=== PATIENT | female | born 1965 | race Caucasian/White ===

== ENCOUNTER 2017-01-10 13:56 | Outpatient (CLI) | payer OTHER | END 2017-01-10 13:57 | disposition home or self-care (01) | LOC: LAB.R 13:56 | PROVIDERS: ATTEND Registered Nurse | DX: R31.9 Hematuria, unspecified (principal) | CPT/HCPCS: 87086 ==

== ENCOUNTER 2017-01-16 15:00 | Outpatient (CLI) | payer OTHER ==
--- NOTE | 2017-01-17 09:44 | Ultrasound Report ---
PELVIC ULTRASOUND: 01/16/2017 COMPARISON: None. INDICATION: Pelvic and perineal pain. TECHNIQUE: Sonographic evaluation of the pelvis, transabdominal and endovaginal technique. FINDINGS: There is a 1.3 cm hypoechoic mass in the anterior uterine body, likely a fibroid. The uterus appears otherwise unremarkable. Endometrial stripe 5 mm. There is a hypoechoic focus in the left ovary that measures 1.2 cm. It likely represents a hemorrhagic cyst. The ovaries appear otherwise normal in size and echogenicity with normal blood flow. IMPRESSION: 1. SMALL UTERINE FIBROID IS OF UNLIKELY SIGNIFICANCE. 2. SMALL HYPOECHOIC FOCUS OF THE LEFT OVARY IS LIKELY A HEMORRHAGIC CYST. FOLLOWUP IS AVAILABLE. JOB #: [id number] EXT JOB #: [id number] JAYLON
== END 2017-01-16 15:01 | disposition home or self-care (01) ==
LOC: DI 15:00
PROVIDERS: ATTEND Registered Nurse
DX: R10.2 Pelvic and perineal pain (principal); D25.9 Leiomyoma of uterus, unspecified
CPT/HCPCS: 76830; 76856

== ENCOUNTER 2017-02-25 09:11 | Outpatient (CLI) | payer OTHER ==
--- NOTE | 2017-02-25 15:41 | Ultrasound Report ---
DATE OF SERVICE: 02/25/2017 PELVIC ULTRASOUND: 02/25/2017 CLINICAL INDICATION: Followup cyst. TECHNIQUE: Transabdominal pelvic ultrasound performed for global evaluation. Transvaginal pelvic ultrasound performed for detailed evaluation. Real-time scanning performed and static images obtained. COMPARISON: 01/16/2017. FINDINGS: The uterus is retroverted, measuring 9.4 x 5.4 x 4.5 cm. An 1.9 cm posterior intramural leiomyoma is again noted. The endometrium measures 8 mm. Right ovary measures 3.6 x 2.2 x 1.6 cm, and demonstrates follicles. The left ovary measures 2.5 x 2.4 x 1.1 cm, and demonstrates follicles. The previously noted hemorrhagic left ovarian cyst has resolved. Trace free fluid is noted in the cul-de-sac. IMPRESSION: RESOLUTION OF PREVIOUSLY SEEN HEMORRHAGIC LEFT OVARIAN CYST. BILATERAL OVARIAN FOLLICLES. STABLE LEIOMYOMA. TD: 02/25/2017 16:40 MTDD
== END 2017-02-25 09:12 | disposition home or self-care (01) ==
LOC: DI 09:11
PROVIDERS: ATTEND Registered Nurse
DX: D25.1 Intramural leiomyoma of uterus (principal)
CPT/HCPCS: 76830; 76856

== ENCOUNTER 2018-11-07 08:00 | Outpatient (CLI) | payer OTHER ==
[2018-11-07 20:54] LABS: CANDIDA GROUP DNA NEGATIVE (NEGATIVE); CANDIDA KRUSEI DNA NEGATIVE (NEGATIVE); TRICHOMONAS VAGINALIS DNA NEGATIVE (NEGATIVE)
[2018-11-09 08:12] LABS: SOURCE VAGINAL
== END 2018-11-07 23:59 | disposition home or self-care (01) ==
LOC: LAB.R 08:00
PROVIDERS: ATTEND Obstetrics & Gynecology
DX: N90.89 Other specified noninflammatory disorders of vulva and perineum (principal)
CPT/HCPCS: 87529; 87661; 87801

== ENCOUNTER 2018-11-11 07:59 | Outpatient (CLI) | payer OTHER ==
[2018-11-11 08:41] LABS: ALBUMIN 4.2 g/dL (3.2-5.5); ALBUMIN/GLOBULIN RATIO 1.5 (1.0-2.2); ALKALINE PHOSPHATASE 45 IU/L (42-121); ALT ALANINE AMINOTRANSFERASE 16 IU/L (10-60); AST ASPARTATE AMINOTRANSFERASE 18 IU/L (10-42); BILIRUBIN,TOTAL 0.9 mg/dL (0.2-1.0); BUN - BLOOD UREA NITROGEN 17 mg/dL (6-20); CALCIUM 8.7 mg/dL (8.5-10.3); CARBON DIOXIDE - CO2 24 mmol/L (21-32); CHLORIDE 105 mmol/L (101-111); CHOL/HDL RATIO 3.9 (<4.4); CHOLESTEROL 214 mg/dL; CREATININE 0.7 mg/dL (0.4-1.0); GFR - MDRD 88 (>89); GLUCOSE 104 mg/dL (70-100); HDL CHOLESTEROL 55 mg/dL; LDL CHOLESTEROL,CALCULATED 147 mg/dL; LDL/HDL RATIO 2.7 (<4.4); SODIUM 138 mmol/L (135-145); VLDL CHOLESTEROL 12 mg/dL
[2018-11-11 08:50] LABS: HB2 TOTAL 14.8 g/dL; HEMOGLOBIN A1C 0.49 g/dL; HEMOGLOBIN A1C % 5.2 % (4.6-6.2); HGB - HEMOGLOBIN 14.6 g/dL (12.0-16.0); MEAN CORPUSCULAR HEMOGLOBIN 32.1 pg (27.0-31.0); MEAN CORPUSCULAR HGB CONC 34.4 g/dL (32.0-36.0); MEAN CORPUSCULAR VOLUME 93.2 fL (81.0-99.0); MEAN PLATELET VOLUME 10.3 fL (7.9-10.8); RED BLOOD COUNT 4.55 10^6/uL (4.20-5.40); RED CELL DISTRIBUTION WIDTH 12.4 % (12.0-15.0); WHITE BLOOD COUNT 4.2 x10^3/uL (4.8-10.8)
[2018-11-13 11:27] LABS: HSV 1 IGG TYPE SPECIFIC AB <0.90 index; HSV 2 IGG TYPE SPECIFIC AB 7.88 index
[2018-11-13 14:12] LABS: SOURCE SERUM
== END 2018-11-11 08:00 | disposition home or self-care (01) ==
LOC: LAB 07:59
PROVIDERS: ATTEND Obstetrics & Gynecology
DX: Z00.00 Encounter for general adult medical examination without abnormal findings (principal); N93.8 Other specified abnormal uterine and vaginal bleeding; N90.89 Other specified noninflammatory disorders of vulva and perineum
CPT/HCPCS: 36415; 80053; 80061; 81599; 83036; 83721; 84443; 85027; 86695; 86696; 87529

== ENCOUNTER 2018-11-28 14:41 | Outpatient (CLI) | payer OTHER ==
--- NOTE | 2018-11-28 16:04 | Ultrasound Report ---
Reason: DUB Procedure Date: 11/28/2018 Accession Number: [id number] / [id number] Procedure: US - Pelvic w/Transvaginal CPT Code: FULL RESULT: EXAM: PELVIC ULTRASOUND EXAM DATE: 11/28/2018 03:39 PM. CLINICAL HISTORY: Dysfunctional uterine bleeding. COMPARISON: PELVIC W/TRANSVAGINAL 02/25/2017 10:22 AM. TECHNIQUE: Realtime transabdominal pelvic scan performed to identify the uterus and adnexa and as an overview of other pelvic structures, followed by transvaginal scan to provide greater detail of the uterus and adnexa, with static image documentation. FINDINGS: Uterus: 7.1 x 4.8 x 5.5 cm, volume 98 cc. Retroverted position. Normal overall size and echotexture. Masses: Posterior intramural fibroid 2.2 x 1.4 x 2.3 cm. Previously 1.9 cm. Endometrium: 4 mm. Normal. Cervix: Unremarkable. Right Ovary: 3.4 x 1.2 x 1.1 cm, volume 2.3 cc. Normal echotexture and blood flow. Left Ovary: 2.5 x 1.4 x 1.5 cm, volume 2.6 cc. Normal echotexture and blood flow. Free Fluid: None. Other: None. IMPRESSION: 1. Interval enlargement of intramural fibroid from 1.9-2.3 cm. 2. Normal endometrium. RADIA
== END 2018-11-28 14:42 | disposition home or self-care (01) ==
LOC: DI 14:41
PROVIDERS: ATTEND Obstetrics & Gynecology
DX: D25.1 Intramural leiomyoma of uterus (principal)
CPT/HCPCS: 76830; 76856

== ENCOUNTER 2018-11-28 14:44 | Outpatient (CLI) | payer OTHER ==
--- NOTE | 2018-12-01 10:52 | Mammography Report ---
Reason: ANNUAL SCREENING Procedure Date: 11/28/2018 Accession Number: [id number] / [id number] Procedure: OVIDIO - Screening Mammo Impl w/David CPT Code: FULL RESULT: EXAM: Screening Mammo Impl w/David DATE: 11/28/2018 4:11 PM CLINICAL HISTORY: Mother with breast cancer. History of breast implants. For routine screening. TECHNIQUE: (B) - Bilateral CC and MLO views were obtained, including implant displaced views.. COMPARISON: 12/09/2013 and 11/21/2012 PARENCHYMAL PATTERN: (D) - The breasts demonstrate heterogeneously dense fibroglandular parenchyma bilaterally. FINDINGS: No significant interval change. There are no suspicious masses, calcifications, or areas of distortion. Stable implants. IMPRESSION: Negative examination. BI-RADS category 1. RECOMMENDATION: (ANNUAL) - Recommend routine annual screening mammography. BI-RADS CATEGORY: (1) - Negative. STANDARD QUALIFYING STATEMENTS: 1. This examination was not reviewed with the aid of Computer-Aided Detection (CAD). 2. A negative or benign imaging report should not preclude biopsy if clinically suspicious findings are present. 3. Dense breasts may obscure an underlying neoplasm. 4. This examination was reviewed with the aid of 3D breast imaging (tomosynthesis).
== END 2018-11-28 14:45 | disposition home or self-care (01) ==
LOC: DI 14:44
PROVIDERS: ATTEND Obstetrics & Gynecology
DX: Z12.31 Encounter for screening mammogram for malignant neoplasm of breast (principal); Z80.3 Family history of malignant neoplasm of breast; Z98.82 Breast implant status
CPT/HCPCS: 77063; 77067

== ENCOUNTER 2021-01-23 11:15 | Outpatient (CLI) | payer SELFPAY | END 2021-01-23 23:59 | disposition home or self-care (01) | LOC: LAB.N 11:15 | PROVIDERS: ATTEND Physician Assistant | DX: R05.9 Cough, unspecified (principal); Z20.822 Contact with and (suspected) exposure to COVID-19 ==

== ENCOUNTER 2021-07-12 14:34 | Outpatient (CLI) | payer OTHER ==
--- NOTE | 2021-07-14 07:54 | Mammography Report ---
BILATERAL DIGITAL SCREENING MAMMOGRAM 3D/2D WITH AUGMENTATION: 07/12/2021 CLINICAL: Routine screening. Comparison is made to exams dated: 11/28/2018 mammogram, 12/09/2013 mammogram, and 11/21/2012 mammog [facility]. There are scattered fibroglandular elements in both breasts. No significant masses, calcifications, or other findings are seen in either breast. There has been no significant interval change. IMPRESSION: NEGATIVE There is no mammographic evidence of malignancy. A 1 year screening mammogram is recommended. This exam was interpreted at Station ID: [id number]. NOTE: For mammograms, a report in lay terms will be sent to the patient. Approximately 15% of breast malignancies will not be visualized mammographically. In the management of a palpable breast mass, a negative mammogram must not discourage biopsy of a clinically suspicious lesion. Electronically Signed By: Bonifacio Duckworth acr/penrad:07/12/2021 16:09:40 ACR BI-RADS Category 1: Negative 3341F PARENCHYMAL PATTERN: (A) - The breast(s) demonstrate(s) scattered fibroglandular densities. BI-RADS CATEGORY: (1) - 1 RECOMMENDATION: (ANNUAL) - Recommend routine annual screening mammography. [id number] 1 year screening LATERALITY: (B)
== END 2021-07-12 14:35 | disposition home or self-care (01) ==
LOC: DI.N 14:34
PROVIDERS: ATTEND Physician Assistant
DX: Z12.31 Encounter for screening mammogram for malignant neoplasm of breast (principal)